=== PATIENT | male | born 1950 | race Caucasian/White ===

== ENCOUNTER 2021-08-13 07:50 | Outpatient (CLI) | payer MEDICARE, BC ==
[2021-08-13 08:32] LABS: Hemoglobin 12.7 g/dL (13.5-17.5); Mean Corpuscular HGB CONC 32.6 g/dL (32.0-36.0); Mean Corpuscular Hemoglobin 29.1 pg (27.0-33.0); Mean Corpuscular Volume 89.2 fl (81.2-95.1); Mean Platelet Volume 9.9 fl (7.4-10.4); Platelet Count 243 10x3/uL (150-450); RBC Distribution Width 13.3 % (11.5-14.5); Red Blood Cell (RBC) Count 4.36 10x6/uL (4.32-5.72); White Blood Cell (WBC) Count 6.3 10x3/uL (3.5-10.5)
[2021-08-13 08:41] LABS: PTT 26.2 sec (22.0-33.0); Prothrombin Time 11.4 sec (9.5-12.1)
[2021-08-13 08:45] LABS: Anion Gap 12 mmol/L (10-20); BUN (Urea Nitrogen) 12 mg/dL (8.4-25.7); Calc. Creatinine Clearance 0 mL/min (70-130); Calcium 10.3 mg/dL (7.8-10.44); Carbon Dioxide 27 mmol/L (23-31); Chloride 106 mmol/L (98-107); Glucose 93 mg/dL (80-115); Potassium 4.3 mmol/L (3.5-5.1); Sodium 141 mmol/L (136-145)
[2021-08-13 21:37] LABS: SARS-CoV-2 PCR by NAA Not Detected (NotDetected)
== END 2021-08-13 07:51 | disposition home or self-care (01) ==
LOC: LABBT 07:50
PROVIDERS: ATTEND Surgery
DX: Z01.818 Encounter for other preprocedural examination (principal); M50.00 Cervical disc disorder with myelopathy, unspecified cervical region; M47.12 Other spondylosis with myelopathy, cervical region; M48.02 Spinal stenosis, cervical region; Z20.822 Contact with and (suspected) exposure to COVID-19
CPT/HCPCS: 80048; 85027; 85610; 85730; 86850; 86900; 86901; 93005; U0003; U0005; 93010

== ENCOUNTER 2021-08-16 05:36 | Inpatient (IN) | payer MEDICARE, BC ==
[2021-08-13 08:32] LABS: Hemoglobin 12.7 g/dL (13.5-17.5); Mean Corpuscular HGB CONC 32.6 g/dL (32.0-36.0); Mean Corpuscular Hemoglobin 29.1 pg (27.0-33.0); Mean Corpuscular Volume 89.2 fl (81.2-95.1); Mean Platelet Volume 9.9 fl (7.4-10.4); Platelet Count 243 10x3/uL (150-450); RBC Distribution Width 13.3 % (11.5-14.5); Red Blood Cell (RBC) Count 4.36 10x6/uL (4.32-5.72); White Blood Cell (WBC) Count 6.3 10x3/uL (3.5-10.5)
[2021-08-13 08:41] LABS: PTT 26.2 sec (22.0-33.0); Prothrombin Time 11.4 sec (9.5-12.1)
[2021-08-13 08:45] LABS: Anion Gap 12 mmol/L (10-20); BUN (Urea Nitrogen) 12 mg/dL (8.4-25.7); Calc. Creatinine Clearance 0 mL/min (70-130); Calcium 10.3 mg/dL (7.8-10.44); Carbon Dioxide 27 mmol/L (23-31); Chloride 106 mmol/L (98-107); Glucose 93 mg/dL (80-115); Potassium 4.3 mmol/L (3.5-5.1); Sodium 141 mmol/L (136-145)
[2021-08-13 21:37] LABS: SARS-CoV-2 PCR by NAA Not Detected (NotDetected)
[2021-08-15 10:05] VITALS: BMI 24.3
[2021-08-16] MEDS ORDERED: ceFAZolin 2 GM/DEX 5% 100 ML BAG ONE (06:12)
[2021-08-16] MEDS ORDERED: Dexmedetomidine 200 MCG/2 ML VIAL ONE (06:33)
[2021-08-16] MEDS ORDERED: Fentanyl 100 MCG/2 ML VIAL ONE ×2 (06:33→09:00)
[2021-08-16] MEDS ORDERED: Thrombin 5000 UNITS/5 ML VIAL ONE (06:34)
[2021-08-16] MEDS ORDERED: Bacitracin Zinc Ointment 30 gm TUBE ONE (06:35)
[2021-08-16] MEDS ORDERED: Rocuronium Bromide 10 MG/ML (10ML VIAL) ONE (07:19)
[2021-08-16] MEDS ORDERED: Dexamethasone 20 MG/5 ML VIAL ONE (07:19)
[2021-08-16] MEDS ORDERED: Ondansetron PF 4 MG/2 ML Vial ONE (07:19)
[2021-08-16] MEDS ORDERED: Lidocaine 1% PF 5 ML VIAL ONE (07:19)
[2021-08-16] MEDS ORDERED: ePHEDrine 50 MG/ML VIAL ONE (07:19)
[2021-08-16] MEDS ORDERED: PHENYLEPHRINE-NS 100 MCG/ML 10 ML SYRINGE ONE ×3 (07:19→12:49)
[2021-08-16] MEDS ORDERED: PROPOFOL 200 MG/20 ML VIAL ONE (07:19)
[2021-08-16] MEDS ORDERED: Rocuronium Bromide 50 MG/5 ML VIAL ONE (11:16)
[2021-08-16] MEDS ORDERED: Albumin 5% 500 ML ONE (12:55)
[2021-08-16] MEDS ORDERED: SUGAMMADEX SODIUM 200 MG/2 ML VIAL ONE (13:14)
[2021-08-16] MEDS ORDERED: Morphine 2 MG/ML VIAL SLOW IVP PRN (13:53)
[2021-08-16] MEDS ORDERED: traMADol HCl 50 MG TAB PO PRN (13:53)
[2021-08-16] MEDS ORDERED: Acetaminophen/Codeine 30-300mg Tablet PO PRN (13:53)
[2021-08-16] MEDS ORDERED: Acetaminophen 325 MG TAB PO PRN (13:53)
[2021-08-16] MEDS ORDERED: Diazepam 5 MG TAB PO PRN (13:55)
[2021-08-16] MEDS ORDERED: Ondansetron HCl/PF 4 MG/2 ML Vial IVP PRN (13:58)
[2021-08-16] MEDS ORDERED: Promethazine HCl 25 MG/ML VIAL IVPB PRN (13:58)
[2021-08-16] MEDS ORDERED: Promethazine HCl 25 MG/ML VIAL IM PRN (13:58)
[2021-08-16] MEDS ORDERED: HYDROmorphone 2 MG/ML VIAL SLOW IVP PRN (13:58)
[2021-08-16] MEDS ORDERED: HYDROmorphone 0.5 MG/0.5 ML SYRINGE ONE ×2 (14:01→14:10)
[2021-08-16] MEDS ORDERED: hydrALAZINE 20 MG/ML VIAL SLOW IVP PRN (14:07)
[2021-08-16] MEDS: Sodium Chloride 0.9% 1,000 ML IV SCH ×2 (16:56→23:12)
[2021-08-16] MEDS: CEFAZOLIN 2 GM in Premix Bag 1 BAG IVPB SCH ×2 (16:56→23:03)
[2021-08-16] MEDS: Gabapentin 300 MG CAP PO SCH ×2 (16:57→20:11)
[2021-08-16] MEDS: HYDROcodone/Acetaminophen 7.5/325 mg Tablet PO PRN ×2 (17:41→23:53)
[2021-08-16] MEDS: ceFAZolin Sodium/D5W 2 GM in Premix Bag 1 BAG IVPB SCH (23:03)
[2021-08-17 05:55] LABS: #Monocytes 1.1 thou/uL (0.11-0.59); #Neutrophils 9.5 thou/uL (1.40-6.50); %Basophils 0.2 % (0.0-1.0); %Eosinophils 0.1 % (0.0-10.0); %Lymphocytes 8.5 % (21.0-51.0); %Monocytes 9.7 % (0.0-10.0); %Neutrophils 81.5 % (42.0-75.0); Hemoglobin 10.6 g/dL (14.0-18.0); Mean Corpuscular HGB CONC 33.7 g/dL (32.0-36.0); Mean Corpuscular Hemoglobin 30.4 pg (27.0-31.0); Mean Corpuscular Volume 90.1 fL (78.0-98.0); Mean Platelet Volume 8.1 fL (7.4-10.4); Platelet Count 207 thou/uL (130-400); RBC Distribution Width 12.2 % (11.5-14.5); Red Blood Cell (RBC) Count 3.51 mill/uL (4.70-6.10); White Blood Cell (WBC) Count 11.7 thou/uL (4.8-10.8)
[2021-08-17] MEDS: ceFAZolin Sodium/D5W 2 GM in Premix Bag 1 BAG IVPB SCH ×3 (05:56→21:27)
[2021-08-17] MEDS: HYDROcodone/Acetaminophen 7.5/325 mg Tablet PO PRN ×2 (05:56→12:14)
[2021-08-17 06:27] LABS: Anion Gap 11 mmol/L (10-20); BUN (Urea Nitrogen) 14 mg/dL (8.4-25.7); Calc. Creatinine Clearance 103 mL/min (70-130); Calcium 8.6 mg/dL (7.8-10.44); Carbon Dioxide 28 mmol/L (23-31); Chloride 103 mmol/L (98-107); Glucose 118 mg/dL (80-115); Potassium 4.2 mmol/L (3.5-5.1); Sodium 138 mmol/L (136-145)
[2021-08-17] MEDS: Gabapentin 300 MG CAP PO SCH ×3 (08:14→21:28)
[2021-08-17] MEDS: CeleCOXIB 100 MG CAP PO SCH (08:15)
[2021-08-17] MEDS: Vit A,C & E/Lutein/Minerals Tablet PO SCH (08:15)
[2021-08-17] MEDS ORDERED: Loratadine/Pseudoephedrine 10/240 mg Tablet PO PRN (10:35)
[2021-08-17] MEDS: Dexamethasone 4 mg/ml Vial SLOW IVP SCH ×3 (11:12→23:15)
[2021-08-17] MEDS: Sodium Chloride 0.9% 1,000 ML IV SCH (12:19)
[2021-08-17] MEDS ORDERED: Morphine 4 MG/ML VIAL SLOW IVP PRN (18:30)
[2021-08-17] MEDS ORDERED: Pantoprazole 40 MG GRANULES PACKET PO SCH (23:00)
[2021-08-18] MEDS: Dexamethasone 4 mg/ml Vial SLOW IVP SCH (05:04)
[2021-08-18] MEDS: ceFAZolin Sodium/D5W 2 GM in Premix Bag 1 BAG IVPB SCH ×2 (05:04→14:19)
[2021-08-18] MEDS: Sodium Chloride 0.9% 1,000 ML IV SCH (05:16)
[2021-08-18] MEDS ORDERED: Chloraseptic Spray 180 ml Bottle PO PRN (07:48)
[2021-08-18] MEDS: CeleCOXIB 100 MG CAP PO SCH (08:26)
[2021-08-18] MEDS: Gabapentin 300 MG CAP PO SCH (08:30)
[2021-08-18] MEDS: Vit A,C & E/Lutein/Minerals Tablet PO SCH (08:30)
[2021-08-18] MEDS ORDERED: Dexamethasone 4 mg/ml Vial SLOW IVP SCH (11:00)
[2021-08-18 11:19] VITALS: BP 142/87; TEMP 97.9
[2021-08-18] MEDS ORDERED: Pantoprazole 40 MG GRANULES PACKET PO SCH (21:00)
[2021-08-19] MEDS ORDERED: Dexamethasone 20 MG/5 ML VIAL SLOW IVP SCH (11:00)
[2021-08-20] MEDS ORDERED: Dexamethasone 4 mg/ml Vial SLOW IVP SCH (11:00)
== END 2021-08-18 14:50 | DRG 454 ==
LOC: SDC 05:36 → SURG A 15:46
PROVIDERS: ADMIT Surgery; ATTEND Surgery
PROC: 0RG20A0 Fusion of 2 or more Cervical Vertebral Joints with Interbody Fusion Device, Anterior Approach, Anterior Column, Open Approach (ICD-10-PCS; principal; 2021-08-16)
PROC: 0RG2071 Fusion of 2 or more Cervical Vertebral Joints with Autologous Tissue Substitute, Posterior Approach, Posterior Column, Open Approach (ICD-10-PCS; 2021-08-16)
PROC: 0RB30ZZ Excision of Cervical Vertebral Disc, Open Approach (ICD-10-PCS; 2021-08-16)
PROC: 01N10ZZ Release Cervical Nerve, Open Approach (ICD-10-PCS; 2021-08-16)
PROC: 00NW0ZZ Release Cervical Spinal Cord, Open Approach (ICD-10-PCS; 2021-08-16)
DX: M48.02 Spinal stenosis, cervical region (principal); G99.2 Myelopathy in diseases classified elsewhere; Z20.822 Contact with and (suspected) exposure to COVID-19; M54.12 Radiculopathy, cervical region; I10 Essential (primary) hypertension; M19.90 Unspecified osteoarthritis, unspecified site; R13.10 Dysphagia, unspecified; R49.0 Dysphonia; Z79.899 Other long term (current) drug therapy
CPT/HCPCS: 36415; 76000; 80048; 85025; 85027; 85610; 85730; 86850; 86900; 86901; 93970; C1713; C1768; C1776; J0690; J1100; J1170; J2270; J2405; J2704; J3010; J3370; J3490; J7050; P9045; U0003; U0005